=== PATIENT | male | born 2000 | race Hispanic/Latino ===

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

== ENCOUNTER 2023-01-26 09:43 | Outpatient (CLI) | payer OTHER | END 2023-01-26 09:44 | disposition home or self-care (01) | LOC: RAD 09:43 | PROVIDERS: ATTEND Student in an Organized Health Care Education/Training Program | DX: R13.10 Dysphagia, unspecified (principal); R04.2 Hemoptysis; Y93.85 Activity, choking game | CPT/HCPCS: 74230 ==